=== PATIENT | male | born 2000 | race Caucasian/White ===

== ENCOUNTER 2022-01-09 08:48 | Emergency (ER) | payer OTHER ==
[2022-01-09 08:52] VITALS: RESP 18
[2022-01-09] MEDS ORDERED: CYCLOBENZAPRINE 10 MG TAB PO STA (09:39)
[2022-01-09] MEDS ORDERED: IBUPROFEN 600 MG TAB PO STA (09:39)
--- NOTE | 2022-01-09 09:39 | ED ---
General Adult HPI - General Chief complaint: Neck Pain/Injury Stated complaint: Neck Pain Time Seen by Provider: 01/09/22 08:53 Source: patient Mode of arrival: ambulatory Limitations: no limitations - History of Present Illness Initial comments: 20-year-old male presents to the emergency room for a chief complaint of neck pain. Patient states he was cracking his neck today and felt a couple polyps and then his neck spasms. States he cannot turn it to the left or straighten out his neck because it is painful. States it kind of radiates into the upper shoulder. He denies any numbness or tingling in his arms. Denies any weakness of the arms. Patient has not taken anything yet for pain.Patient has no other complaints at this time including shortness of breath, chest pain, abdominal pain, nausea or vomiting, headache, or visual changes. - Related Data Previous Rx's Medication Instructions Recorded Cyclobenzaprine [Flexeril] 10 mg PO TID #20 tab 01/09/22 Ibuprofen [Motrin] 600 mg PO Q8HR PRN #30 tab 01/09/22 Allergies Allergy/AdvReac Type Severity Reaction Status Date / Time oseltamivir [From Tamiflu] Allergy Rash/Hives Verified 01/09/22 08:52 Review of Systems ROS Statement: Those systems with pertinent positive or pertinent negative responses have been documented in the HPI. ROS Other: All systems not noted in ROS Statement are negative. Past Medical History Past Medical History: No Reported History History of Any Multi-Drug Resistant Organisms: None Reported Past Surgical History: No Surgical Hx Reported Past Psychological History: No Psychological Hx Reported Smoking Status: Never smoker Past Alcohol Use History: None Reported Past Drug Use History: None Reported General Exam Limitations: no limitations General appearance: alert, in no apparent distress Head exam: Present: atraumatic Eye exam: Present: normal appearance, PERRL, EOMI. Absent: scleral icterus, conjunctival injection ENT exam: Present: normal exam, mucous membranes moist Neck exam: Absent: tenderness (Tenderness to the right posterior cervical muscles and SCM), meningismus, full ROM (Patient holding neck to the right. Cannot turn head to the left) Respiratory exam: Present: normal lung sounds bilaterally. Absent: respiratory distress, wheezes Cardiovascular Exam: Present: regular rate, normal rhythm, normal heart sounds Extremities exam: Present: full ROM (Full range motion of the left upper extremity. Strength 5 out of 5.), normal capillary refill (Capillary refill less than 2 seconds, radial pulse 2+ left upper extremity) Course Vital Signs 01/09/22 08:49 Temperature 97.4 F L Pulse Rate 84 Respiratory 18 Rate Blood Pressure 156/97 O2 Sat by Pulse 98 Oximetry Medical Decision Making - Medical Decision Making Vitals are stable. Patient is well-appearing. Patient's symptoms likely musculoskeletal in nature, suspect torticollis. I did recommend Toradol and Norflex injections however patient does not want any shots. He prefers oral anti-inflammatories. Given Motrin and Flexeril. Discussed not to drive while taking these. He will follow-up with his doctor. He'll return here for any worsening symptoms. Disposition Clinical Impression: Strain of neck muscle Disposition: HOME SELF-CARE Condition: Good Instructions (If sedation given, give patient instructions): Cervical Strain (ED) Additional Instructions: Take medications as directed. Massage the neck and do gentle stretching. Apply warm heat to the area. Follow-up with your doctor. Return to the emergency room for any worsening symptoms. Prescriptions: Cyclobenzaprine [Flexeril] 10 mg PO TID #20 tab Ibuprofen [Motrin] 600 mg PO Q8HR PRN #30 tab PRN Reason: Pain Is patient prescribed a controlled substance at d/c from ED?: No Referrals: Philippe Ruiz DO [Doctor of Osteopathic Medicine] - 1-2 days Time of Disposition: 10:17
[2022-01-09 10:24] VITALS: BP 148/96; PULSE 82; TEMP 98
== END 2022-01-09 10:22 | disposition home or self-care (01) ==
LOC: EC 08:48
DX: S16.1XXA Strain of muscle, fascia and tendon at neck level, initial encounter (principal); Z88.8 Allergy status to other drugs, medicaments and biological substances; X58.XXXA Exposure to other specified factors, initial encounter
CPT/HCPCS: 99283

== ENCOUNTER → 2024-04-04 | Outpatient (CLI) | payer OTHER | END | disposition home or self-care (01) | LOC: RADECHMAIN 15:00 | PROVIDERS: ATTEND Family Medicine | DX: Z82.79 Family history of other congenital malformations, deformations and chromosomal abnormalities (principal) | CPT/HCPCS: 93306 ==